=== PATIENT | male | born 1985 | race Caucasian/White ===

== ENCOUNTER 2017-01-21 13:11 | Emergency (ER) | payer OTHER ==
[2017-01-21 13:19] VITALS: BP 156/87
--- NOTE | 2017-01-21 13:21 | ER Document Report ---
ED Medical Screen (RME) - General Stated Complaint: TOOTHACHE Notes: Patient complains of left lower dental pain for a few days. Patient states the pain is giving him a headache, and he vomited once. Similar episode over one year ago, no follow-up with dental. I have greeted and performed a rapid initial assessment of this patient. A comprehensive ED assessment and evaluation of the patient, analysis of test results and completion of the medical decision making process will be conducted by additional ED providers. TRAVEL OUTSIDE OF THE [place] IN LAST 30 DAYS: No - Related Data Allergies/Adverse Reactions: No Known Allergies Allergy (Verified 01/21/17 13:21) Past Medical History - Past Medical History Cardiac Medical History: Reports: Hx Hypercholesterolemia, Hx Hypertension Endocrine Medical History: Reports: Hx Diabetes Mellitus Type 1 Past Surgical History: Reports: Hx Appendectomy, Hx Oral Surgery, Hx Orthopedic Surgery - Immunizations Hx Diphtheria, Pertussis, Tetanus Vaccination: Yes Physical Exam - HEENT Teeth diagram: 1 - mild decay, slight edema to gums
--- NOTE | 2017-01-21 14:39 | ER Document Report ---
ED Oral Problem - General Chief Complaint: Toothache Stated Complaint: TOOTHACHE Notes: Patient is complaining of severe pain in one of his left lower posterior teeth, somewhere around the first molar, for 2-3 days. Pain has become constant and is unable to sleep. Pain has been so severe that it's caused him to vomit and is having a left-sided headache. Has not had a fever. No significant swelling of his jaw. Patient recalls having a similar episode with that tooth and that similar location about a year ago, but it only lasted less than a day. Patient is an insulin-dependent diabetic. TRAVEL OUTSIDE OF THE [place] IN LAST 30 DAYS: No - Related Data Allergies/Adverse Reactions: No Known Allergies Allergy (Verified 01/21/17 13:21) Past Medical History - Social History Smoking Status: Never Smoker Chew tobacco use (# tins/day): No Frequency of alcohol use: Occasional Drug Abuse: None Family History: Reviewed & Not Pertinent - Past Medical History Cardiac Medical History: Reports: Hx Hypercholesterolemia, Hx Hypertension Endocrine Medical History: Reports: Hx Diabetes Mellitus Type 1 Past Surgical History: Reports: Hx Appendectomy, Hx Oral Surgery, Hx Orthopedic Surgery - Immunizations Hx Diphtheria, Pertussis, Tetanus Vaccination: Yes Review of Systems - Review of Systems Constitutional: denies: Fever EENT: Dental problem. denies: Ear pain, Nose pain, Throat pain, Difficulty swallowing, Mouth pain Cardiovascular: denies: Chest pain Gastrointestinal: Nausea, Vomiting - Once. denies: Abdominal pain, Diarrhea Physical Exam - Vital signs Vitals: Temp Pulse Resp BP Pulse Ox 98.2 F 106 H 16 156/87 H 98 01/21/17 13:17 01/21/17 13:17 01/21/17 13:17 01/21/17 13:17 01/21/17 13:17 Interpretation: Normal - Notes Notes: PHYSICAL EXAMINATION: GENERAL: Well-appearing, in no acute distress. Afebrile. HEAD: Atraumatic, normocephalic. ENT: oropharynx clear without exudates. Moist mucous membranes. Patient complains of pain around one of his lower left posterior teeth, looks like probably the first molar tooth. Patient does not have any significant gingival swelling around the painful tooth. I do not see an actual cavity of any of those teeth and the patient says he is unaware of the cavity, although the triage provider indicated that she may see a cavity. Certainly, no evidence of an abscess of the tooth. NECK: Normal range of motion, supple. LUNGS: Breath sounds clear and equal bilaterally. HEART: Regular rate and rhythm without murmurs. ABDOMEN: Soft, nontender. No guarding or rebound. SKIN: Warm, dry, no rashes. Course - Vital Signs Vital signs: Temp Pulse Resp BP Pulse Ox 98.2 F 106 H 16 156/87 H 98 01/21/17 13:17 01/21/17 13:17 01/21/17 13:17 01/21/17 13:17 01/21/17 13:17 Discharge - Discharge Clinical Impression: Toothache Condition: Stable Disposition: HOME, SELF-CARE Additional Instructions: TOOTHACHE: Your pain is due to dental decay. The tooth must be repaired in order for you to feel better. You will, therefore, be referred to a dentist. We do not have dentists on the staff at [facility]. Severe swelling or drainage around a tooth usually means a dental abscess. This also requires evaluation and treatment by the dentist, but antibiotics may be prescribed while awaiting dental treatment. You should be rechecked immediately if you develop major swelling of the face, increasing pain, a lump in the jaw or gums, headache, difficulty swallowing, or fever. ORAL NARCOTIC MEDICATION: You have been given a prescription for pain control. This medication is a narcotic. It's best taken with food, as nausea can result if taken on an empty stomach. Don't operate machinery or drive within six hours of taking this medication. Do not combine this medicine with alcohol, or with any medication which can cause sedation (such as cold tablets or sleeping pills) unless you get permission from the physician. Narcotics tend to cause constipation. If possible, drink plenty of fluids and eat a diet high in fiber and fruits. PENICILLIN V K: You have been given a prescription for Penicillin VK. Your physician has determined that this is the best antibiotic for your condition. Pen VK can be taken with meals, however more of the antibiotic gets into the bloodstream if it's taken on an empty stomach. Penicillin usually has no side effects. However, allergy to penicillins is common. If you have had an allergic reaction to any drug of the penicillin family, you should never take any other penicillin. Notify your doctor at once if you develop hives, itching, swelling, faintness, or shortness of breath. Antinausea Medication You have been given a medication to suppress nausea and vomiting. This type of medication can be given as a shot, pill, or suppository. It will usually last for many hours. Pills and shots usually last six to eight hours, suppositories last about 12 hours. For the typical illness, only one or two doses of the medication may be necessary. Mild lightheadedness may occur. This type of medicine can cause drowsiness. Do not drive or operate dangerous machinery while under its influence. Do not mix with alcohol. See your doctor at once if you have muscle spasms or tightness, or uncontrollable motions (particularly of the neck, mouth, or jaw). Persistent vomiting or severe lightheadedness should also be evaluated by the physician. FOLLOW-UP CARE: You have been referred for follow-up care to the dentists listed below. Call the dentists office for an appointment as you were instructed or within the next two days. If you experience worsening or a significant change in your symptoms, notify the physician immediately or return to the Emergency Department at any time for re-evaluation. [facility] [address] [place], [place] Friday mornings, by appointment [facility] [address] [place] [address] [facility] [address] [facility] [address] [facility] [address] [email or web address] [address] [place] [address] Friday- 8:00am to 5:00 pm Will see patients from other [facility]. Charges based on income and family size and accepts Medicare, Medicaid, and Insurances Will pull molars [facility] [address] [address] Hours of Operation 8:00 am - 4:30 pm weekdays The following dental offices accept Medicaid: [facility] Dr. Salomon Dr. Spaulding Dr. Gomez Dr. Culver Amilcar Chou, Alxeandra, and Ryann oral surgery Dr. Colon ([place]) Dr. Douglas ([place]) [facility] Drs. Steinberg and Brandon ([place]) Dr. Woody ([place]) [facility] Dr. Lombardo ([place]) Drs. Edward and ([place]) Medicaid Care Line Prescriptions: Oxycodone HCl/Acetaminophen [Percocet 5-325 mg Tablet] 1 - 2 tab PO Q4HP PRN # 20 tablet PRN Reason: Promethazine HCl [Phenergan 25 mg Tablet] 1 - 2 tab PO Q6HP PRN #20 tablet PRN Reason: Penicillin V Potassium [Penicillin Vk 250 mg Tablet] 250 mg PO QID #28 tablet Forms: Return to Work
== END 2017-01-21 14:45 | disposition home or self-care (01) ==
LOC: ER 13:11
DX: K08.9 Disorder of teeth and supporting structures, unspecified (principal); R51 Headache; E78.00 Pure hypercholesterolemia, unspecified; I10 Essential (primary) hypertension; E10.9 Type 1 diabetes mellitus without complications
CPT/HCPCS: 99282